=== PATIENT | female | born 1970 | race Caucasian/White ===

== ENCOUNTER 2017-10-21 01:23 | Observation (INO) | payer BC ==
[~2017-10-21] VITALS: Ht 152.4 cm; Wt 41.6 kg
[2017-10-21 02:16] LABS: EOSINOPHIL (%) 0 % (0-5); HEMATOCRIT 31.2 % (36.0-46.0); IMMATURE GRANULOCYTE (%) 0.4 % (0.0-0.7); INSTRUMENT ABS NEUTROPHIL CT 7.1 K/uL; LYMPHOCYTE COUNT 0.4 K/uL (1.0-2.8); MCH 29.6 PG (29.0-34.0); MCHC 34.9 G/DL (30.0-36.0); MCV 84.8 FL (83-99); MEAN PLAT.VOLUME 9.3 uM^3 (9.5-12.4); MONOCYTE (%) 6.5 % (3-12); MONOCYTE COUNT 0.5 K/uL (0-0.8); NEUTROPHIL (%) 87.8 % (45-76); NEUTROPHIL COUNT 7.1 K/uL (1.8-6.4); PLATELET COUNT 136 K/uL (156-360); RBC DIS.WIDTH-CV 12.8 % (11.8-14.6); RBC DIS.WIDTH-SD 39.8 % (39-53); RED BLOOD COUNT 3.68 M/uL (3.80-5.20)
[2017-10-21 02:28] LABS: CHLORIDE 109 mEq/L (99-109); POTASSIUM 3.4 mEq/L (3.7-5.4); SODIUM 137 mEq/L (136-147)
[2017-10-21 02:30] LABS: GLUCOSE 120 mg/dL (70-99)
[2017-10-21 02:32] LABS: ANION GAP 5 MEQ/L (2-14); TOTAL BILIRUBIN 1.4 mg/dL (0.0-1.0)
[2017-10-21 02:34] LABS: ALKALINE PHOSPHATASE 66 IU/L (3-129)
[2017-10-21 02:35] LABS: UREA NITROGEN (BUN) 14 mg/dL (9-23)
[2017-10-21 02:36] LABS: DIRECT BILIRUBIN 0.6 mg/dL (0.0-0.3)
[2017-10-21 02:37] LABS: LIPASE 13 U/L (1.0-51.0)
[2017-10-21 02:40] LABS: GFR ESTIMATE (CALCULATED) > 59 mL/min/
[2017-10-21 07:37] LABS: ADD MIUA? YES; BILIRUBIN NEGATIVE; BLOOD SMALL; COLOR YELLOW ((YELLOW)); GLUCOSE (STRIP) NEGATIVE; KETONES 20; LEUKOCYTES SMALL; NITRITE NEGATIVE; PROTEIN (STRIP) 30; SPECIFIC GRAVITY 1.016 (1.000-1.030); UROBILINOGEN 0.2 MG/DL (0.2-1.0)
[2017-10-21 07:42] LABS: BACTERIA RARE /HPF; EPITHELIAL CELLS 1+ /HPF; GRANULAR CASTS 0-5 /LPF; HYALINE CASTS 0-5 /LPF; MUCUS 2+ /LPF; RED BLOOD CELLS 0-5 /HPF (0-5); UCUL ADDED? YES; WHITE BLOOD CELLS 20-30 /HPF (0-5)
[2017-10-21 09:32] VITALS: BP 126/72
[2017-10-21] MEDS ORDERED: DULOXETINE HCL20 MG PO (09:37)
[2017-10-21 12:04] VITALS: BP 114/74
[2017-10-21 15:49] VITALS: BP 150/80
[2017-10-21 20:32] VITALS: BP 150/77
[2017-10-22 00:09] VITALS: BP 144/89
[2017-10-22 04:06] VITALS: BP 139/76
[2017-10-22 05:40] LABS: HEMATOCRIT 31.2 % (36.0-46.0); MCH 29.9 PG (29.0-34.0); MCHC 34.9 G/DL (30.0-36.0); MCV 85.5 FL (83-99); MEAN PLAT.VOLUME 10.1 uM^3 (9.5-12.4); PLATELET COUNT 139 K/uL (156-360); RBC DIS.WIDTH-CV 12.8 % (11.8-14.6); RBC DIS.WIDTH-SD 39.8 % (39-53); RED BLOOD COUNT 3.65 M/uL (3.80-5.20); WHITE BLOOD COUNT 6.5 K/uL (4.1-10.2)
[2017-10-22 06:06] LABS: ALKALINE PHOSPHATASE 60 IU/L (3-129); ANION GAP 6 MEQ/L (2-14); CHLORIDE 109 MEQ/L (99-109); GFR ESTIMATE (CALCULATED) > 59 mL/min/; SAMPLE HEMOLYSIS CHECK 0; SAMPLE ICTERIC CHECK 0; SAMPLE LIPEMIA CHECK 0; SODIUM 141 MEQ/L (136-147); TOTAL BILIRUBIN 1.1 MG/DL (0.0-1.0); UREA NITROGEN (BUN) 9 mg/dL (9-23)
[2017-10-22 06:24] LABS: GLUCOSE 83 mg/dL (70-99); POTASSIUM 4.1 MEQ/L (3.7-5.4)
[2017-10-22 07:43] VITALS: BP 150/79
[2017-10-22 11:15] VITALS: BP 150/91
[2017-10-22] MEDS ORDERED: ZOFRAN4 MG PO (13:17)
== END 2017-10-22 14:43 | disposition home or self-care (01) ==
LOC: EDBD 01:23 → EME 01:23 → EDOF 07:38 → ENRESERV 07:38 → 5WEST 07:38 → EDOF 07:38 → ENRESERV 08:04 → 5WEST 08:58
PROVIDERS: Emergency Medicine; Internal Medicine; Nurse Practitioner Adult Health
DX: E86.0 Dehydration (principal); A08.4 Viral intestinal infection, unspecified; R55 Syncope and collapse; S02.19XA Other fracture of base of skull, initial encounter for closed fracture; R42 Dizziness and giddiness; I34.1 Nonrheumatic mitral (valve) prolapse; Z90.49 Acquired absence of other specified parts of digestive tract; W22.8XXA Striking against or struck by other objects, initial encounter
CPT/HCPCS: 70450; 76705; 80048; 80053; 80076; 81003; 83690; 85025; 85027; 87086; 87502; 87506; 93005; 99281; 99285; G0378; J2405; J7030